=== PATIENT | female | born 1965 | race Caucasian/White ===

== ENCOUNTER 2020-02-27 13:30 | Emergency (ER) | payer OTHER ==
[~2020-02-27] VITALS: Ht 165.1 cm; Wt 59.0 kg
[2020-02-27] MEDS ORDERED: CELEXA40 MG PO (14:01)
[2020-02-27] MEDS ORDERED: CLONAZEPAM0.5 M1 PO (14:01)
[2020-02-27] MEDS ORDERED: CLONAZEPAM1 MG PO (14:01)
[2020-02-27] MEDS ORDERED: PEPCID PO (14:03)
[2020-02-27] MEDS ORDERED: INDERAL LA160 MG PO (14:03)
[2020-02-27] MEDS ORDERED: CIPRO500 MG/5 M PO (14:04)
[2020-02-27] MEDS ORDERED: PHOSPHASAL TAB1 EACH PO (14:04)
[2020-02-27] MEDS ORDERED: RELPAX40 MG PO (14:07)
== END 2020-02-27 15:41 | disposition home or self-care (01) ==
LOC: ER 13:30
DX: B37.3 Candidiasis of vulva and vagina (principal)

== ENCOUNTER 2020-02-28 15:22 | Emergency (ER) | payer OTHER ==
[~2020-02-28] VITALS: Ht 165.1 cm; Wt 59.0 kg
[~2020-02-28 15:22] MED LIST: CELEXA40 MG PO; CIPRO500 MG/5 M PO; CLONAZEPAM0.5 M1 PO; CLONAZEPAM1 MG PO; INDERAL LA160 MG PO; PEPCID PO; PHOSPHASAL TAB1 EACH PO; RELPAX40 MG PO
== END 2020-02-28 18:29 | disposition home or self-care (01) ==
LOC: ER 15:22
DX: B37.3 Candidiasis of vulva and vagina (principal)

== ENCOUNTER 2021-02-19 08:25 | Outpatient (CLI) | payer OTHER | END 2021-02-19 08:40 | disposition home or self-care (01) | LOC: PPH VACUNA 08:25 | DX: Z23 Encounter for immunization (principal) ==

== ENCOUNTER 2022-03-08 11:10 | Outpatient (CLI) | payer OTHER | END 2022-03-08 11:20 | disposition home or self-care (01) | LOC: PPH VACUNA 11:10 | PROVIDERS: ATTEND Emergency Medicine Pediatric Emergency Medicine | DX: Z23 Encounter for immunization (principal) ==

== ENCOUNTER → 2024-07-02 | Outpatient (CLI) | payer OTHER | END | disposition home or self-care (01) | LOC: SONOGRAMA 10:09 | PROVIDERS: ATTEND Pathology Anatomic Pathology | DX: E04.2 Nontoxic multinodular goiter (principal) ==